=== PATIENT | female | born 1985 | race African-American/Black ===

== ENCOUNTER 2017-01-28 04:40 | Inpatient (IN) ==
[2017-01-28] MEDS ORDERED: BUTORPHANOL 2 MG/ML VIAL IV PRN (04:51)
[2017-01-28] MEDS ORDERED: ACETAMINOPHEN 325 MG TABLET PO PRN ×2 (04:51→17:15)
[2017-01-28] MEDS ORDERED: ONDANSETRON 4 MG/2 ML VIAL IV PRN ×2 (04:51→17:15)
[2017-01-28] MEDS ORDERED: OXYTOCIN/LR 20 UNIT/1,000 ML BAG IV SCH (05:00)
[2017-01-28] MEDS: LACTATED RINGERS 1,000 ML IV SCH ×2 (05:08→15:40)
[2017-01-28 05:10] LABS: Basophils % 0.3 % (0.0-0.8); Eosinophils # 0.2 10*3/uL (0.0-0.87); Eosinophils % 1.5 % (0.00-10.9); Hematocrit 30.6 VOL% (35.7-47.0); Hemoglobin 10.2 GM/DL (12.0-16.0); Immature Granulocytes % 0.6 %; Immature Granulocytes Absolute 0.07 #; Lymphocytes # 3.9 10*3/uL (1.4-4.0); Lymphocytes % 34.2 % (21.3-54.2); Mean Corpuscular HGB Conc 33.3 GM/DL (32-36); Mean Corpuscular Hemoglobin 29 PG (27-34); Mean Corpuscular Volume 87.2 FL (87-102); Mean Platelet Volume 10.1 FL (9.6-12.0); Monocytes # 1.2 10*3/uL (0.11-0.8); Monocytes % 10.4 % (1.7-12.7); Platelet Count 286 T/CUMM (130-400); Red Blood Count 3.51 MC/CUMM (3.8-5.5); Red Cell Distribution Width 13.7 % (9.3-17.3); White Blood Count 11.3 T/CUMM (4-12)
[2017-01-28 05:16] LABS: Apearance,Urine Slightly Hazy (Clear); Bacteria,Urine Occasional /HPF (Few); Bilirubin,Urine Negative (Negative); Blood, Urine Negative (Negative); Glucose,Urine (UA) Negative (Negative); Hyaline Casts,Urine 1 /LPF (0-3); Ketones,Urine Negative (Negative); Nitrite,Urine Negative (Negative); Protein,Urine Negative; RBC,Urine 1 /HPF (0-4); Squamous Epithelial Cell,Urine Occasional /HPF (0-10); Urine Color Straw (Yellow); Urine Specific Gravity 1.002 (1.001-1.035); Urine Urobilinogen < 2.0 EU/DL (0.2-1.0); WBC,Urine 3 /HPF (0-6)
[2017-01-28 05:21] LABS: Barbiturates Screen,Urine Negative (Negative); Benzodiazepines Screen,Urine Negative (Negative); Cannabinoid Screen,Urine Negative (Negative); Opiate Screen,Urine Negative (Negative); Phencyclidine Screen,Urine Negative (Negative)
[2017-01-28 05:21] LABS: INR 0.9; PT Patient Result 9.9 SECS; Partial Thromboplastin Time 26.2 SECS (0-40)
[2017-01-28 05:42] LABS: Albumin 2.7 G/DL (3.4-5.0); Bilirubin,Total 0.4 MG/DL (0.2-1.0); Calcium 8.8 MG/DL (8.5-10.1); Osmolality,Calculated 277.3 MOS/KG (273-304); Potassium 3.7 MMOL/L (3.5-5.1); Total Protein 6.9 G/DL (6.4-8.3); Uric Acid 3.8 MG/DL (2.6-6.0)
--- NOTE | 2017-01-28 08:30 | OB/GYN History & Physical ---
History of Present Illness Chief complaint: Patient is here for induction of labor at term History of present illness: Patient is a 31-year-old 4 para 3003 that presented induction of labor. She is 39.1 weeks gestation today. She receives care at [facility] with Madison Murcia CNM, [facility]. She had a total of 13 visits and 3 ultrasounds. During the course of her she has she had a history of hypertension and was not on any medications. She had a urine drug screen positive for marijuana and she was cautioned about the risk of marijuana use and smoking in . On 01/28/2017, she had elevated blood pressures 3+ edema and headache she was sent to the hospital for evaluation and her PIH labs were normal and she was discharged home by Dr. Peter. Her records are current , reviewed, and up to date. 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 Hx: History of ASCUS and LGSIL on Pap smear OB Hx: 4 para 3003 All were term deliveries without problems or complications vaginally Genetic Hx: Noncontributory Social Hx: Engaged, no physical impairment Family Hx: Hypertension noted with sister Medications: vitamins, vitamin D Labs: Blood type and RH O+, antibody screen negative, Rubella immune, HIV negative, HBsAG negative, GC negative, Chlamydia negative, Diabetic Screen 115, GBS negative, Other vitamin D 11.6 Home Medications Medication Instructions Recorded Confirmed Type Multivitamin () [ 1 tablet PO DAILY 01/22/17 01/28/17 History Vitamin] Allergies Allergy/AdvReac Type Severity Reaction Status Date / Time No Known Allergies Allergy Verified 01/22/17 12:44 12 point system: reviewed and no additional remarkable complaints except as stated Medical,Surgical,& Family Hx - Medical History Cardio: History of: Hypertension Reproductive: No history of: Ectopic , Complication - Surgical History Reproductive Surgeries: Patient denies;: Section Additional Surgical History: Colposcopy - Family History Family History: Reports;: Family Hypertension (SISTER) Denies;: Family Anesthesia Reaction, Family Cancer, Family Diabetes, Family Heart Disease, Family Hematology, Family Psychiatric Problems, Family Stroke, Additional Family History - Social History Smoking Status: Never smoker Frequency of Alcohol Use: None Type of Drug Use: None Marital Status: Single Lives With:: Children Functional capacity: independent ambulation 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 - Constitutional Vitals: Vital Signs Temp Pulse Resp BP Pulse Ox 01/28/17 07:52 98.8 F 77 20 144/88 100 01/28/17 04:47 98.9 F 73 20 124/84 100 General appearance: no acute distress - Antepartum / Post Post Exam Cervix - Dilatation: 1 cm/40% effaced/-4/anteriorly asynclitic Rupture: Intact Presentation: Vertex, estimated weight 7-1/2-8 pounds Heart Rate: 140s with spontaneous accelerations no decelerations noted good variability [place]: Every 2-3 minutes/50-60 seconds/mild Breast: bilateral: normal Abdomen obstetrics: Present: bowel sounds normal Vulva: bilateral: normal Vagina: Present: normal moisture Uterus exam: Present: enlarged (Gravid, soft, nontender between contractions) Anus/Rectum: Present: normal perianal skin - Head Head exam: Present: normal inspection - Eye Eye exam: Present: EOMI - Neck Neck exam: Present: normal inspection - Respiratory Respiratory exam: Present: clear to auscultation bilaterally - Breast Breasts: as per HPI - Cardiovascular Cardiovascular exam: Present: regular rate and rhythm - GI/Abdominal GI/Abdominal exam: Present: normal bowel sounds - Extremities Exam Extremities exam: Present: normal inspection, normal capillary refill, full ROM - Back Exam Back exam: Present: normal inspection - Neurological Exam Neurological exam: Present: alert, oriented X3, normal gait - Psychiatric Psychiatric exam: Present: normal affect, normal mood - Skin Skin exam: Present: normal color, warm, dry Assessment and Plan (1) Chronic hypertension Status: Acute Current Visit: Yes (2) History of marijuana use Status: Acute Current Visit: Yes (3) Anemia Status: Acute Current Visit: Yes Qualifiers: Anemia type: iron deficiency Results - Labs CBC & BMP: 01/28/17 05:03 01/28/17 05:03
--- NOTE | 2017-01-28 13:18 | OB/GYN Progress Note ---
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 States "does not want an epidural." O: FHT 150's baseline with accelerations present. No decelerations. Category I FHR tracing. UC 2-3 minutes/ 50-60 seconds/ palpated mild SVE 2cm/ 50%/ -3, full bladder noted, anterior asynclitic noted with SVE Pitocin infusing at 18mU/min. GBS negative Urine drug screen negative A: IUP @ 39.1 wks, Category I FHR tracing, Early Labor/Latent labor, Pitocin Induction P: Continue with pitocin induction. Reposition for comfort. 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
[2017-01-28] MEDS ORDERED: miSOPROStol 200 MCG TABLET ONE (16:22)
[2017-01-28] MEDS ORDERED: LIDOCAINE 1% 50 ML VIAL ONE (16:22)
[2017-01-28] MEDS ORDERED: miSOPROStol 200 MCG TABLET RECTAL ONE (16:45)
[2017-01-28 16:49] LABS: Cord Arterial Blood HCO3 20.9 MMOL/L
--- NOTE | 2017-01-28 17:14 | Operative Note ---
Date of procedure: 01/28/17 Pre-op diagnosis: IUP @ 39.1 wks, H/O Positive Urine Drug Screen, Induction of Labor Post-op diagnosis: other () Procedure: Patient received in dorsal lithotomy position. Patient was draped and prepped. At 1637, head delivered in KENDRICK position with the assistance of Clarita Dee, student nurse barber instructor. Nuchal cord x 2 noted and easily slipped over baby's head. Anterior then posterior shoulders were delivered easily without difficulty. delivered in usual fashion and secured. Mouth and nose bulb suctioned. Cord double clamped and cut. Cord gases and cord blood obtained. Placental cord noted to be long and thin at 1644, spontaneous delivery of placenta via Vandana position, with 3 vessel cord noted, normal cord insertion, with moderate calcifications. Hemostasis maintained with fundal massage and Pitocin 20 units in 1000 cc of lactated Ringer's along with Cytotec 800 mcg rectally. Perineum inspected with bilateral labial lacerations noted and repaired with a 2-0 chromic. Male with Apgars 8 and 9 weighing 7 pounds and 6 ounces. Mother and baby stable. Mother desires to bottle feed. Anesthesia: local (Lacerations infiltrated with lidocaine 1% plain) Surgeon / Physician: Madison Murcia Estimated blood loss: other (350 cc) Specimens: other (Placenta to pathology secondary to history of positive urine drug screen for THC, long thin cord, moderate calcifications) Condition: stable Disposition: floor Results - Labs CBC & BMP: 01/28/17 05:03 01/28/17 05:03 Discharge Plan - Discharge Medications No Action Multivitamin () [ Vitamin] 1 tablet PO DAILY - Follow Up or Referral - Forms/Instructions
[2017-01-28] MEDS ORDERED: LANOLIN 50% CREAM 0.3 OZ TUBE TOP PRN (17:15)
[2017-01-28] MEDS ORDERED: BISACODYL 10 MG SUPP RECTAL PRN (17:15)
[2017-01-28] MEDS ORDERED: RHO(D) IMMUNE GLOBULIN 300 MCG SYRINGE IM ONE (17:15)
[2017-01-28] MEDS ORDERED: DIPH/TET/ACEL PERT BOOSTER VACCINE 0.5 ML VIAL IM ONE (17:15)
[2017-01-28] MEDS ORDERED: BENZOCAINE 20%/MENTHOL 0.5% SPRAY 56 GM CAN TOP PRN (17:15)
[2017-01-28] MEDS ORDERED: WITCH HAZEL PADS 100/JAR TOP PRN (17:15)
[2017-01-28] MEDS ORDERED: HYDROCORTISONE 2.5% RECTAL CREAM 30 GM TUBE TOP PRN (17:15)
[2017-01-28] MEDS ORDERED: OXYTOCIN/LR 20 UNIT/1,000 ML BAG IV ONE (17:15)
[2017-01-28] MEDS ORDERED: MEASLES/MUMPS/RUBELLA VACCINE 0.5 ML VIAL SUBCUT ONE (17:15)
[2017-01-28] MEDS: IBUPROFEN 800 MG TABLET PO PRN (19:39)
[2017-01-28] MEDS: oxyCODONE/ACETAMINOPHEN 5-325 MG TABLET PO PRN (20:40)
[2017-01-28] MEDS: FERROUS SULFATE 325 MG TABLET PO SCH (22:20)
[2017-01-28] MEDS: DOCUSATE SODIUM 100 MG CAPSULE PO SCH (22:20)
[2017-01-29] MEDS: IBUPROFEN 800 MG TABLET PO PRN ×3 (02:30→19:22)
[2017-01-29] MEDS: oxyCODONE/ACETAMINOPHEN 5-325 MG TABLET PO PRN ×5 (02:30→21:14)
[2017-01-29 06:10] LABS: Basophils % 0.2 % (0.0-0.8); Eosinophils # 0.1 10*3/uL (0.0-0.87); Eosinophils % 0.7 % (0.00-10.9); Hematocrit 27.9 VOL% (35.7-47.0); Hemoglobin 9.1 GM/DL (12.0-16.0); Immature Granulocytes % 0.7 %; Immature Granulocytes Absolute 0.11 #; Lymphocytes # 3.4 10*3/uL (1.4-4.0); Lymphocytes % 22.2 % (21.3-54.2); Mean Corpuscular HGB Conc 32.6 GM/DL (32-36); Mean Corpuscular Hemoglobin 29 PG (27-34); Mean Corpuscular Volume 87.5 FL (87-102); Mean Platelet Volume 10.4 FL (9.6-12.0); Monocytes # 1.9 10*3/uL (0.11-0.8); Monocytes % 12.3 % (1.7-12.7); Neutrophils # 9.8 10*3/uL (1.4-7.4); Neutrophils % 63.9 % (38.7-73.9); Platelet Count 237 T/CUMM (130-400); Red Blood Count 3.19 MC/CUMM (3.8-5.5); Red Cell Distribution Width 13.6 % (9.3-17.3); White Blood Count 15.4 T/CUMM (4-12)
--- NOTE | 2017-01-29 08:23 | OB/GYN Progress Note ---
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 Denies any problems. Patient indicated she would like control but is unsure of the type of control she would desire at this point. A: day 1, anemia, bottlefeeding, stable P: Continue routine care. 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 - Constitutional Vitals: Vital Signs Temp Pulse Resp BP Pulse Ox 01/29/17 07:31 97.6 F 60 18 135/80 96 01/29/17 06:00 18 01/29/17 04:03 97.2 F L 64 16 128/86 99 01/29/17 00:25 97.0 F L 71 18 137/84 98 01/28/17 23:00 97.4 F L 68 18 150/88 99 01/28/17 22:00 97.1 F L 73 20 147/89 98 01/28/17 21:00 97.6 F 72 20 152/84 100 01/28/17 20:30 98.0 F 67 18 140/83 99 01/28/17 20:00 98.1 F 69 20 145/84 99 01/28/17 16:00 97.8 F 75 18 147/82 01/28/17 12:00 98.7 F 66 20 139/83 General appearance: no acute distress - Antepartum / Post Post Exam Breast: bilateral: normal Abdomen obstetrics: Present: bowel sounds normal Vagina: Present: normal moisture (Intact, healing well) Uterus exam: Present: enlarged (Firm, midline, 2 fingerbreadths below the umbilicus) Anus/Rectum: Present: normal perianal skin - Head Head exam: Present: normal inspection - Neck Neck exam: Present: normal inspection - Respiratory Respiratory exam: Present: clear to auscultation bilaterally - Breast Menstruation: other (Scant rubra noted on perineal pad, no clots visualized) - Cardiovascular Cardiovascular exam: Present: regular rate and rhythm - GI/Abdominal GI/Abdominal exam: Present: normal bowel sounds - Extremities Exam Extremities exam: Present: normal inspection, normal capillary refill, full ROM - Back Exam Back exam: Present: normal inspection - Neurological Exam Neurological exam: Present: alert, oriented X3, normal gait - Psychiatric Psychiatric exam: Present: normal affect, normal mood - Skin Skin exam: Present: normal color, warm, dry Results - Labs CBC & BMP: 01/29/17 05:54 01/28/17 05:03 Labs: Laboratory Tests 01/28/17 01/28/17 01/28/17 04:55 04:55 05:03 WBC 11.3 RBC 3.51 L Hgb 10.2 L Hct 30.6 L MCV 87.2 MCH 29 MCHC 33.3 RDW 13.7 Plt Count 286 MPV 10.1 Neut % (Auto) 53.0 Lymph % (Auto) 34.2 [place] % (Auto) 10.4 Eos % (Auto) 1.5 Baso % (Auto) 0.3 Neut # (Auto) 6.0 Lymph # (Auto) 3.9 [place] # (Auto) 1.2 H Eos # (Auto) 0.2 Baso # (Auto) 0.0 Immature Gran % 0.6 Nucleated RBC % 0.0 Immature Gran # 0.07 Nucleated RBCs # 0.00 INR PT Patient/Control Mix Fibrinogen Circ Anticoag PTT Cord ABG pH Cord ABG pCO2 Cord ABG pO2 Cord ABG HCO3 Cord ABG Total CO2 Cord ABG Base Excess Sodium Potassium Chloride Carbon Dioxide Anion Gap BUN Creatinine GFR Calculation BUN/Creatinine Ratio Glucose Calculated Osmolality Uric Acid Calcium Total Bilirubin AST ALT Alkaline Phosphatase Total Protein Albumin Globulin Albumin/Globulin Ratio Urine Color Straw Urine Appearance Slightly hazy Urine pH 7.0 Ur Specific [place] 1.002 Urine Protein Negative Urine Glucose (UA) Negative Urine Ketones Negative Urine Blood Negative Urine Nitrate Negative Urine Bilirubin Negative Urine Urobilinogen < 2.0 H Urine Leukocytes Negative Urine RBC 1 Urine WBC 3 Ur Squamous Epith Cells Occasional Urine Bacteria Occasional Hyaline Casts 1 Ur Culture Indicated? Not indicated Urine Opiates Screen Negative Ur Barbiturates Screen Negative Ur Phencyclidine Scrn Negative U Amphetamine/Methamph Negative U Benzodiazepines Scrn Negative U Cocaine Metab Screen Negative U Cannabinoids Screen Negative Treponema pallidum IgG Blood Type Antibody Screen 01/28/17 01/28/17 01/28/17 05:03 05:03 05:03 WBC RBC Hgb Hct MCV MCH MCHC RDW Plt Count MPV Neut % (Auto) Lymph % (Auto) [place] % (Auto) Eos % (Auto) Baso % (Auto) Neut # (Auto) Lymph # (Auto) [place] # (Auto) Eos # (Auto) Baso # (Auto) Immature Gran % Nucleated RBC % Immature Gran # Nucleated RBCs # INR PT Patient/Control Mix Fibrinogen Circ Anticoag PTT Cord ABG pH Cord ABG pCO2 Cord ABG pO2 Cord ABG HCO3 Cord ABG Total CO2 Cord ABG Base Excess Sodium 141 Potassium 3.7 Chloride 106 Carbon Dioxide 25 Anion Gap 13.7 BUN 6 L Creatinine 0.60 GFR Calculation 180 BUN/Creatinine Ratio 10.00 Glucose 84 Calculated Osmolality 277.3 Uric Acid 3.8 Calcium 8.8 Total Bilirubin 0.40 AST 15 ALT 15 Alkaline Phosphatase 170 H Total Protein 6.9 Albumin 2.7 L Globulin 4.2 H Albumin/Globulin Ratio 0.6 L Urine Color Urine Appearance Urine pH Ur Specific [place] Urine Protein Urine Glucose (UA) Urine Ketones Urine Blood Urine Nitrate Urine Bilirubin Urine Urobilinogen Urine Leukocytes Urine RBC Urine WBC Ur Squamous Epith Cells Urine Bacteria Hyaline Casts Ur Culture Indicated? Urine Opiates Screen Ur Barbiturates Screen Ur Phencyclidine Scrn U Amphetamine/Methamph U Benzodiazepines Scrn U Cocaine Metab Screen U Cannabinoids Screen Treponema pallidum IgG Nonreactive Blood Type O POSITIVE Antibody Screen Negative 01/28/17 01/28/17 01/29/17 05:03 16:37 05:54 WBC 15.4 H D RBC 3.19 L Hgb 9.1 L Hct 27.9 L MCV 87.5 MCH 29 MCHC 32.6 RDW 13.6 Plt Count 237 MPV 10.4 Neut % (Auto) 63.9 Lymph % (Auto) 22.2 [place] % (Auto) 12.3 Eos % (Auto) 0.7 Baso % (Auto) 0.2 Neut # (Auto) 9.8 H Lymph # (Auto) 3.4 [place] # (Auto) 1.9 H Eos # (Auto) 0.1 Baso # (Auto) 0.0 Immature Gran % 0.7 Nucleated RBC % 0.0 Immature Gran # 0.11 Nucleated RBCs # 0.00 INR 0.9 PT Patient/Control Mix 9.9 Fibrinogen 394 Circ Anticoag PTT 26.2 Cord ABG pH 7.229 Cord ABG pCO2 65.3 Cord ABG pO2 19.7 Cord ABG HCO3 20.9 Cord ABG Total CO2 24.7 Cord ABG Base Excess -2.4 Sodium Potassium Chloride Carbon Dioxide Anion Gap BUN Creatinine GFR Calculation BUN/Creatinine Ratio Glucose Calculated Osmolality Uric Acid Calcium Total Bilirubin AST ALT Alkaline Phosphatase Total Protein Albumin Globulin Albumin/Globulin Ratio Urine Color Urine Appearance Urine pH Ur Specific [place] Urine Protein Urine Glucose (UA) Urine Ketones Urine Blood Urine Nitrate Urine Bilirubin Urine Urobilinogen Urine Leukocytes Urine RBC Urine WBC Ur Squamous Epith Cells Urine Bacteria Hyaline Casts Ur Culture Indicated? Urine Opiates Screen Ur Barbiturates Screen Ur Phencyclidine Scrn U Amphetamine/Methamph U Benzodiazepines Scrn U Cocaine Metab Screen U Cannabinoids Screen Treponema pallidum IgG Blood Type Antibody Screen
[2017-01-29] MEDS: DOCUSATE SODIUM 100 MG CAPSULE PO SCH ×2 (08:30→20:22)
[2017-01-29] MEDS: FERROUS SULFATE 325 MG TABLET PO SCH ×3 (08:30→20:22)
[2017-01-29] MEDS ORDERED: miSOPROStol 200 MCG TABLET VAG SCH (16:45)
[2017-01-30 07:55] VITALS: BP 153/80
[2017-01-30] MEDS: oxyCODONE/ACETAMINOPHEN 5-325 MG TABLET PO PRN (08:25)
[2017-01-30] MEDS: FERROUS SULFATE 325 MG TABLET PO SCH (08:25)
[2017-01-30] MEDS: DOCUSATE SODIUM 100 MG CAPSULE PO SCH (08:25)
--- NOTE | 2017-01-30 10:06 | Discharge Summary ---
Hospital Course - Hospital Course Hospital Course: Patient is a 31 year old G4 now Para 4004 who presented for induction labor @ 39.1 wks. She was induced with Pitocin and labor progressed under an epidural anesthetic. Patient delivered an 7 pound 6 ounce male with Apgars 8 and 9. She experienced bilateral labial lacerations that were repaired. She is bottle feeding and is stable. She has been treated for anemia with iron sulfate. She and the baby are being discharged home today. Diagnosis - Discharge Diagnosis (1) Chronic hypertension Status: Acute (2) History of marijuana use Status: Acute (3) Anemia Status: Acute (4) (normal spontaneous vaginal delivery) Status: Resolved Specialty Discharge - Follow Up or Referrals Follow up with: Madison Murcia CFNP [Advanced Practice Nurse] - Discharge Plan - Discharge Data Disposition: Disch To Home/Self Care Condition at Discharge: Stable Discharge Diet: advance to your usual diet Activity: resume usual activities as tolerated Hygiene: no restrictions Driving: no restrictions Contact your physician if you experience:: fever over 101, Difficulty voiding, Redness or swelling, Nausea/Vomiting, Shortness of breath, Bleeding, pain uncontrolled by pain medications - Discharge Medications New Ferrous Sulfate Tab [Feosol Original Tab] 325 mg PO TID #90 tablet Ibuprofen Tab [Motrin Tab] 800 mg PO Q8H PRN #90 tablet PRN Reason: Pain Moderate (4-7) No Action Multivitamin () [ Vitamin] 1 tablet PO DAILY - Follow Up or Referral Follow Up: Madison Murcia CFNP [Advanced Practice Nurse] - 2 Weeks - Forms/Instructions Instructions: Perineal Care (DC), Vaginal Delivery (DC), Bleeding (DC) Exam - Constitutional Vitals: Period Temp Pulse Resp BP Sys/[place] Pulse Ox Last 24 Hr 96.9 F-97.6 F 60-72 16-20 127-153/72-89 96-98 General appearance: normal weight - Head Head exam: Present: normal inspection - ENT ENT exam: Present: normal exam - Neck Neck exam: Present: normal inspection - Respiratory Respiratory exam: Present: clear to auscultation bilaterally - Cardiovascular Cardiovascular exam: Present: regular rate and rhythm - GI/Abdominal GI/Abdominal exam: Present: normal bowel sounds (uterus firm, midline, 3 FB) - Extremities Exam Extremities exam: Present: normal inspection, normal capillary refill, full ROM - Back Exam Back exam: Present: normal inspection - Neurological Exam Neurological exam: Present: alert, oriented X3, normal gait - Psychiatric Psychiatric exam: Present: normal affect, normal mood - Skin Skin exam: Present: normal color, warm, dry Discharge Results Procedures and tests throughout hospitalization: Laboratory Results - last 72 hr 01/28/17 01/28/17 01/28/17 04:55 04:55 05:03 WBC 11.3 RBC 3.51 L Hgb 10.2 L Hct 30.6 L MCV 87.2 MCH 29 MCHC 33.3 RDW 13.7 Plt Count 286 MPV 10.1 Neut % (Auto) 53.0 Lymph % (Auto) 34.2 [place] % (Auto) 10.4 Eos % (Auto) 1.5 Baso % (Auto) 0.3 Neut # (Auto) 6.0 Lymph # (Auto) 3.9 [place] # (Auto) 1.2 H Eos # (Auto) 0.2 Baso # (Auto) 0.0 Immature Gran % 0.6 Nucleated RBC % 0.0 Immature Gran # 0.07 Nucleated RBCs # 0.00 INR PT Patient/Control Mix Fibrinogen Circ Anticoag PTT Cord ABG pH Cord ABG pCO2 Cord ABG pO2 Cord ABG HCO3 Cord ABG Total CO2 Cord ABG Base Excess Sodium Potassium Chloride Carbon Dioxide Anion Gap BUN Creatinine GFR Calculation BUN/Creatinine Ratio Glucose Calculated Osmolality Uric Acid Calcium Total Bilirubin AST ALT Alkaline Phosphatase Total Protein Albumin Globulin Albumin/Globulin Ratio Urine Color Straw Urine Appearance Slightly hazy Urine pH 7.0 Ur Specific [place] 1.002 Urine Protein Negative Urine Glucose (UA) Negative Urine Ketones Negative Urine Blood Negative Urine Nitrate Negative Urine Bilirubin Negative Urine Urobilinogen < 2.0 H Urine Leukocytes Negative Urine RBC 1 Urine WBC 3 Ur Squamous Epith Cells Occasional Urine Bacteria Occasional Hyaline Casts 1 Ur Culture Indicated? Not indicated Urine Opiates Screen Negative Ur Barbiturates Screen Negative Ur Phencyclidine Scrn Negative U Amphetamine/Methamph Negative U Benzodiazepines Scrn Negative U Cocaine Metab Screen Negative U Cannabinoids Screen Negative Treponema pallidum IgG Blood Type Antibody Screen 01/28/17 01/28/17 01/28/17 05:03 05:03 05:03 WBC RBC Hgb Hct MCV MCH MCHC RDW Plt Count MPV Neut % (Auto) Lymph % (Auto) [place] % (Auto) Eos % (Auto) Baso % (Auto) Neut # (Auto) Lymph # (Auto) [place] # (Auto) Eos # (Auto) Baso # (Auto) Immature Gran % Nucleated RBC % Immature Gran # Nucleated RBCs # INR PT Patient/Control Mix Fibrinogen Circ Anticoag PTT Cord ABG pH Cord ABG pCO2 Cord ABG pO2 Cord ABG HCO3 Cord ABG Total CO2 Cord ABG Base Excess Sodium 141 Potassium 3.7 Chloride 106 Carbon Dioxide 25 Anion Gap 13.7 BUN 6 L Creatinine 0.60 GFR Calculation 180 BUN/Creatinine Ratio 10.00 Glucose 84 Calculated Osmolality 277.3 Uric Acid 3.8 Calcium 8.8 Total Bilirubin 0.40 AST 15 ALT 15 Alkaline Phosphatase 170 H Total Protein 6.9 Albumin 2.7 L Globulin 4.2 H Albumin/Globulin Ratio 0.6 L Urine Color Urine Appearance Urine pH Ur Specific [place] Urine Protein Urine Glucose (UA) Urine Ketones Urine Blood Urine Nitrate Urine Bilirubin Urine Urobilinogen Urine Leukocytes Urine RBC Urine WBC Ur Squamous Epith Cells Urine Bacteria Hyaline Casts Ur Culture Indicated? Urine Opiates Screen Ur Barbiturates Screen Ur Phencyclidine Scrn U Amphetamine/Methamph U Benzodiazepines Scrn U Cocaine Metab Screen U Cannabinoids Screen Treponema pallidum IgG Nonreactive Blood Type O POSITIVE Antibody Screen Negative 01/28/17 01/28/17 01/29/17 05:03 16:37 05:54 WBC 15.4 H D RBC 3.19 L Hgb 9.1 L Hct 27.9 L MCV 87.5 MCH 29 MCHC 32.6 RDW 13.6 Plt Count 237 MPV 10.4 Neut % (Auto) 63.9 Lymph % (Auto) 22.2 [place] % (Auto) 12.3 Eos % (Auto) 0.7 Baso % (Auto) 0.2 Neut # (Auto) 9.8 H Lymph # (Auto) 3.4 [place] # (Auto) 1.9 H Eos # (Auto) 0.1 Baso # (Auto) 0.0 Immature Gran % 0.7 Nucleated RBC % 0.0 Immature Gran # 0.11 Nucleated RBCs # 0.00 INR 0.9 PT Patient/Control Mix 9.9 Fibrinogen 394 Circ Anticoag PTT 26.2 Cord ABG pH 7.229 Cord ABG pCO2 65.3 Cord ABG pO2 19.7 Cord ABG HCO3 20.9 Cord ABG Total CO2 24.7 Cord ABG Base Excess -2.4 Sodium Potassium Chloride Carbon Dioxide Anion Gap BUN Creatinine GFR Calculation BUN/Creatinine Ratio Glucose Calculated Osmolality Uric Acid Calcium Total Bilirubin AST ALT Alkaline Phosphatase Total Protein Albumin Globulin Albumin/Globulin Ratio Urine Color Urine Appearance Urine pH Ur Specific [place] Urine Protein Urine Glucose (UA) Urine Ketones Urine Blood Urine Nitrate Urine Bilirubin Urine Urobilinogen Urine Leukocytes Urine RBC Urine WBC Ur Squamous Epith Cells Urine Bacteria Hyaline Casts Ur Culture Indicated? Urine Opiates Screen Ur Barbiturates Screen Ur Phencyclidine Scrn U Amphetamine/Methamph U Benzodiazepines Scrn U Cocaine Metab Screen U Cannabinoids Screen Treponema pallidum IgG Blood Type Antibody Screen DS: Provider Date of admission: 01/28/17 04:51 Primary care physician: . No PCP Attending physician on admission: Xin Jovel, Consults: 01/28/17 04:51 Consult to Anesthesiology [CONS] Routine Consulting Provider: Reason for Anesthesiology: Epidural Consult Comment: Epidural for pain managment 01/28/17 17:16 Consult to Care Management Specialist [CONS] Routine Consult Care Management Specialist: Breast Feeding Discharging clinician: HARDY Oconnell
--- NOTE | 2017-01-30 11:19 | Pathology Report from [facility] ---
[facility] ACCESSION # : [id number] PATIENT NAME : Reggie Lovett ORDERING DR : Xin Jovel MD CLINICAL HX: Spon. vaginal delivery @ 39 wks POST-OP DX: Same SPECIMEN INFO: Placenta GROSS DESCRIPTION: Received fresh labeled with the patients name and consists of a 532 gram placenta which measures 20.5 x 15.5 x 2.5 cm. membranes are pink-narvaez and translucent. The umbilical cord measures 64.5 cm, with several thrombosed areas noted. The cord contains three vessels and is centrally inserted. The surface is blue-ang and intact. The maternal surface is intact with numerous calcifications seen. Sectioning reveals no gross abnormalities. Sections submitted: A membranes and cord, B and maternal surfaces. DIAGNOSIS FOR REGGIE LOVETT: PLACENTA, MEMBRANES, UMBILICAL CORD: Focal placental infarction with dystrophic calcification, mild intervillous blood. 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 Membranes with focal chronic inflammation and attached blood. COLLECTED DATE: 01/29/2017 [facility] REPORT DATE: 01/30/2017 ELECTRONICALLY SIGNED BY: Malu Perez M.D. 01/30/2017 - 9:57:12 [facility]ERStephanie
== END 2017-01-30 12:45 | disposition home or self-care (01) | DRG 560 ==
LOC: N.LDOUT 04:40 → N.LD 04:43 → N.OB 20:22
PROVIDERS: ADMIT Obstetrics & Gynecology; ATTEND Obstetrics & Gynecology

== ENCOUNTER 2018-09-24 08:01 | Inpatient (IN) ==
[2018-09-24 10:47] LABS: Apearance,Urine Slightly Hazy (Clear); Bilirubin,Urine Negative (Negative); Blood, Urine Small mg/dL (Negative); Glucose,Urine (UA) Negative (Negative); Ketones,Urine Negative (Negative); Mucus,Urine Occasional /LPF (Occasional); Nitrite,Urine Negative (Negative); Protein,Urine Negative; RBC,Urine 1 /HPF (0-4); Squamous Epithelial Cell,Urine Occasional /HPF (0-10); Urine Color Yellow (Yellow); Urine Specific Gravity 1.016 (1.001-1.035); Urine Urobilinogen < 2.0 EU/DL (0.2-1.0); WBC,Urine 1 /HPF (0-6)
[2018-09-24 10:58] LABS: Basophils % 0.3 % (0.0-0.8); Eosinophils % 0.2 % (0.00-10.9); Hematocrit 39.5 VOL% (35.7-47.0); Hemoglobin 12.3 GM/DL (12.0-16.0); Immature Granulocytes % 0.4 %; Immature Granulocytes Absolute 0.05 #; Lymphocytes # 1.6 10*3/uL (1.4-4.0); Mean Corpuscular HGB Conc 31.1 GM/DL (32-36); Mean Corpuscular Hemoglobin 27 PG (27-34); Mean Corpuscular Volume 84.9 FL (87-102); Mean Platelet Volume 10.5 FL (9.6-12.0); Monocytes # 0.6 10*3/uL (0.11-0.8); Monocytes % 4.6 % (1.7-12.7); Neutrophils # 11.3 10*3/uL (1.4-7.4); Neutrophils % 82.5 % (38.7-73.9); Platelet Count 373 T/CUMM (130-400); Red Blood Count 4.65 MC/CUMM (3.8-5.5); Red Cell Distribution Width 13.3 % (9.3-17.3); White Blood Count 13.6 T/CUMM (4-12)
[2018-09-24 11:21] LABS: Alanine Aminotransferase 21 U/L (13-56); Alkaline Phosphatase 81 U/L (45-117); Aspartate Amino Transferase 15 U/L (0-37); Bilirubin,Total < 0.39 MG/DL (0.2-1.0); Blood Urea Nitrogen 9 MG/DL (7-18); Glucose 92 MG/DL (74-106); Osmolality,Calculated 273.7 MOS/KG (273-304); Potassium 3.4 MMOL/L (3.5-5.1); Sodium 138 MMOL/L (136-145); Total Protein 8.9 G/DL (6.4-8.3)
[2018-09-24] MEDS ORDERED: ONDANSETRON 4 MG/2 ML VIAL IV STA (12:16)
[2018-09-24] MEDS ORDERED: HYDROmorphone 2 MG/1 ML VIAL IV STA (12:16)
[2018-09-24] MEDS ORDERED: FAMOTIDINE 20 MG/2 ML VIAL IV STA (12:16)
[2018-09-24] MEDS ORDERED: AMPICILLIN/SULBACTAM 3,000 MG in SODIUM CHLORIDE 0.9% 100 ML IV STA (12:18)
[2018-09-24] MEDS ORDERED: KETOROLAC 10 MG TABLET PO PRN (12:34)
[2018-09-24] MEDS ORDERED: HYDROmorphone 2 MG/1 ML VIAL IV PRN ×3 (12:34→15:29)
[2018-09-24] MEDS ORDERED: BISACODYL 5 MG TABLET PO PRN (12:34)
[2018-09-24] MEDS ORDERED: ALBUTEROL/IPRATROPIUM 3 ML NEB RESP TX PRN (12:34)
[2018-09-24] MEDS ORDERED: ACETAMINOPHEN 325 MG TABLET PO PRN (12:34)
[2018-09-24] MEDS ORDERED: ONDANSETRON 4 MG/2 ML VIAL IV PRN ×2 (12:34→15:29)
[2018-09-24] MEDS ORDERED: METOPROLOL TARTRATE 5 MG/5 ML VIAL IV STA (12:41)
[2018-09-24] MEDS ORDERED: LIDOCAINE 1%/EPI INJ 20 ML VIAL ONE (13:31)
[2018-09-24] MEDS ORDERED: TISSUE ADHESIVE 1 EACH APPLICATOR TOP ONE (13:31)
[2018-09-24] MEDS: LACTATED RINGERS 1,000 ML IV SCH ×2 (15:10→21:36)
[2018-09-24] MEDS ORDERED: SEVOFLURANE 1 UNIT/15 MINUTE INH ONE (15:19)
[2018-09-24] MEDS ORDERED: PROPOFOL 200 MG/20 ML VIAL IV ONE (15:19)
[2018-09-24] MEDS ORDERED: fentaNYL 100 MCG/2 ML VIAL ONE (15:20)
[2018-09-24] MEDS ORDERED: MIDAZOLAM 2 MG/2 ML VIAL ONE (15:20)
[2018-09-24] MEDS ORDERED: SUCCINYLCHOLINE 200 MG/10 ML VIAL ONE (15:20)
[2018-09-24] MEDS ORDERED: LACTATED RINGERS 1,000 ML IV ONE (15:20)
[2018-09-24] MEDS ORDERED: ONDANSETRON 4 MG/2 ML VIAL ONE ×2 (15:20→15:36)
[2018-09-24] MEDS ORDERED: DEXAMETHASONE 10 MG/1 ML VIAL ONE (15:20)
[2018-09-24] MEDS ORDERED: KETOROLAC 30 MG/1 ML VIAL ONE (15:20)
[2018-09-24] MEDS ORDERED: MEPERIDINE 25 MG/1 ML VIAL IV PRN (15:29)
[2018-09-24] MEDS ORDERED: diphenhydrAMINE 50 MG/1 ML VIAL IV PRN (15:29)
[2018-09-24] MEDS ORDERED: PROMETHAZINE INJ 25 MG in SODIUM CHLORIDE 0.9% 50 ML IV PRN (15:29)
[2018-09-24] MEDS ORDERED: MEPERIDINE 25 MG/1 ML VIAL ONE (15:36)
[2018-09-24] MEDS: cefOXitin 2,000 MG in SYRINGE 1 EACH IV SCH ×2 (16:32→21:36)
[2018-09-25] MEDS: cefOXitin 2,000 MG in SYRINGE 1 EACH IV SCH ×2 (04:00→13:40)
[2018-09-25 04:32] LABS: Basophils % 0.1 % (0.0-0.8); Hematocrit 31.3 VOL% (35.7-47.0); Hemoglobin 9.8 GM/DL (12.0-16.0); Immature Granulocytes % 0.5 %; Immature Granulocytes Absolute 0.07 #; Lymphocytes # 1.6 10*3/uL (1.4-4.0); Lymphocytes % 10.7 % (21.3-54.2); Mean Corpuscular HGB Conc 31.3 GM/DL (32-36); Mean Corpuscular Hemoglobin 26 PG (27-34); Mean Corpuscular Volume 84.1 FL (87-102); Mean Platelet Volume 11.2 FL (9.6-12.0); Monocytes # 0.5 10*3/uL (0.11-0.8); Monocytes % 3.4 % (1.7-12.7); Neutrophils # 12.7 10*3/uL (1.4-7.4); Neutrophils % 85.3 % (38.7-73.9); Platelet Count 300 T/CUMM (130-400); Red Blood Count 3.72 MC/CUMM (3.8-5.5); Red Cell Distribution Width 13.2 % (9.3-17.3); White Blood Count 14.8 T/CUMM (4-12)
[2018-09-25 04:49] LABS: Calcium 8.7 MG/DL (8.5-10.1); Osmolality,Calculated 278.4 MOS/KG (273-304); Potassium 3.6 MMOL/L (3.5-5.1)
[2018-09-25] MEDS: LACTATED RINGERS 1,000 ML IV SCH (05:40)
[2018-09-25] MEDS ORDERED: PANTOPRAZOLE 40 MG TABLET PO SCH (09:00)
[2018-09-25] MEDS ORDERED: NIFEdipine 10 MG CAPSULE PO SCH (10:00)
[2018-09-25] MEDS ORDERED: cefOXitin 2,000 MG in SYRINGE 1 EACH IV SCH (10:30)
[2018-09-25 11:12] VITALS: BP 164/101
[2018-09-25 11:26] LABS: Hematocrit 29.9 VOL% (35.7-47.0); Hemoglobin 9.6 GM/DL (12.0-16.0)
== END 2018-09-25 14:20 | disposition home or self-care (01) | DRG 343 ==
LOC: N.ED 08:01 → N.EDINP 12:34 → N.3E 15:10
PROVIDERS: ADMIT Surgery; ATTEND Surgery